=== PATIENT | female | born 1965 | race Hispanic/Latino ===

== ENCOUNTER 2017-11-18 20:00 | Emergency (ER) | payer MEDICARE ==
[2017-11-18 20:26] VITALS: BP 156/84; PULSE 99; RESP 20; TEMP 97.7; O2SAT 98
[2017-11-18] MEDS ORDERED: Dexamethasone 4 mg/1 ml IM STA (20:59)
--- NOTE | 2017-11-18 21:11 | C.PDOC ---
History Of Present Illness 52yo female, with history of chronic back pain, comes to ER complaining of worsening left lower back pain, radiating to her left abdomen and left leg. Patient states she had a neurotransmitter placed in her left lower back, but that it was "too low" and so had a second one placed "higher up" on her back. She reports there is a lot of "scar tissue" in that area and states when she went to bend over a couple days ago, she felt the neurotransmitter "move" and felt a pulling sensation. Patient also states she is visiting from [place] and while she is on vacation, she has been walking more than usual and feels her pain may be attributed to that. Patient states she takes Oxycodone 2mg and has been taking it for her pain with no relief. Otherwise, she denies any fever, chills, weakness, numbness, tingling, and offers no additional medical complaints. Time Seen by Provider: 11/18/17 20:38 Chief Complaint (Nursing): Back Pain History Per: Patient History/Exam Limitations: no limitations Onset/Duration Of Symptoms: Days, Persistent Current Symptoms Are (Timing): Still Present Quality Of Discomfort: "Pain" Previous Symptoms: Back Pain, Chronic Pain Associated Symptoms: denies: Incontinence, New Weakness, New Numbness Exacerbating Factor(s): Movement Additional History Per: Patient Past Medical History Reviewed: Historical Data, Nursing Documentation, Vital Signs Vital Signs: Last Vital Signs Temp 97.7 F 11/18/17 20:20 Pulse 99 H 11/18/17 20:20 Resp 20 11/18/17 20:20 BP 156/84 H 11/18/17 20:20 Pulse Ox 98 11/18/17 23:31 - Medical History PMH: Anxiety, Fibromyalgia, Chronic Pain (back) Denies: Chronic Kidney Disease Surgical History: Back Surgery, Cholecystectomy Other Surgeries: neurotransmitter placement x 2 Family History: States: No Known Family Hx - Social History Hx Tobacco Use: No Hx Alcohol Use: No Hx Substance Use: No - Immunization History Hx Tetanus Toxoid Vaccination: Yes Hx Influenza Vaccination: Yes Hx Pneumococcal Vaccination: Yes Review Of Systems Except As Marked, All Systems Reviewed And Found Negative. Constitutional: Negative for: Fever, Chills Gastrointestinal: Positive for: Abdominal Pain (left sided) Musculoskeletal: Positive for: Back Pain (left sided), Leg Pain (left) Neurological: Negative for: Weakness, Numbness Physical Exam - Physical Exam Appears: Non-toxic, No Acute Distress Skin: Warm Head: Atraumatic, Normacephalic Eye(s): bilateral: Normal Inspection Neck: Normal ROM, Supple Chest: Symmetrical Cardiovascular: Rhythm Regular Respiratory: Normal Breath Sounds Gastrointestinal/Abdominal: Soft, No Tenderness, No Mass, No Guarding, No Rebound Back: No Vertebral Tenderness, No Muscle Spasm, Paraspinal Tenderness (left sided), Other (no sign of infection to surgical site) Extremity: Normal ROM, No Tenderness, No Pedal Edema, No Calf Tenderness, No Deformity, No Swelling Neurological/Psych: Oriented x3, Normal Motor, Normal Sensation Gait: Steady ED Course And Treatment O2 Sat by Pulse Oximetry: 98 (RA) Pulse Ox Interpretation: Normal Medical Decision Making Medical Decision Making: Impression: Exacerbation of lower back pain Plan: * Decadron 10 mg IM * Flexeril 10 mg PO * Toradol 30 mg IM * Lumbar spine x-ray LS spine xray is questionable. CT scan ordered. CT scan of the lumbar spine shows degenerative changes but otherwise unremarkable. On re-exam, the patient reports improvement of symptoms. Lungs are CTA, heart is RRR, abdomen is soft, non-tender and the patient is tolerating PO well. Ambulatory in the ED with steady gait. Follow up with the medical doctor within 1-2 days. Return if worsened. Disposition - Disposition Referrals: [facility] [Outside] Disposition: HOME/ ROUTINE Disposition Time: 23:28 Condition: STABLE Additional Instructions: Follow up with your Spine doctor within 1-2 weeks. Return if worsened. 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 - Scribe Statement The provider has reviewed the documentation as recorded by the Scribe Rakan Chang All medical record entries made by the Scribe were at my direction and personally dictated by me. I have reviewed the chart and agree that the record accurately reflects my personal performance of the history, physical exam, medical decision making, and the department course for this patient. I have also personally directed, reviewed, and agree with the discharge instructions and disposition.
[2017-11-18] MEDS ORDERED: Lidocaine 5% Patch TD STA (22:02)
[2017-11-18] MEDS ORDERED: Lidocaine 5% Patch TD ONE (22:09)
[2017-11-18] MEDS ORDERED: Morphine 4 MG/ML VIAL ONE (22:14)
--- NOTE | 2017-11-19 06:22 | CT ---
Date of service: 11/18/2017 PROCEDURE: CT Lumbar Spine without contrast HISTORY: back pain, hx of spine surgery COMPARISON: None. TECHNIQUE: Axial computed tomography images were obtained of the lumbar spine without the use of intravenous contrast. Coronal and sagittal reformatted images were created and reviewed. Radiation dose: Total exam DLP = 1040.75 mGy-cm. This CT exam was performed using one or more of the following dose reduction techniques: Automated exposure control, adjustment of the mA and/or kV according to patient size, and/or use of iterative reconstruction technique. FINDINGS: VERTEBRAE: The patient is status post posterior lumbar fusion at L3 - L5. There are bilateral pedicle screws at L3 and L5 connected with vertical rods. There are also intervertebral spacers at L3-L4 and L4-L5 no evidence of acute fracture or destructive bony lesion in the lumbar vertebrae. Normal alignment of the lumbar spine vertebrae without evidence of subluxation. DISCS/SPINAL CANAL/NEURAL FORAMINA: L1-2: Cqgx-re-kzsgeniy narrowing of the intervertebral disc is space at L1-L2 noted. There is a small broad-based disc bulge associated with posterior ligament and facet joint hypertrophy which resulting in mild spinal and left neural foraminal narrowing. L2-3: There is moderate to severe narrowing of the intervertebral disc space. There is a broad-based disc bulge associated with posterior ligament and facet joint hypertrophy which resulting in [id number] spinal stenosis. L3-4: Unremarkable. L4-5: Unremarkable. L5-S1: Unremarkable. PARASPINAL SOFT TISSUES: There is stimulator device at the lower back with 2 wires extending into the spinal canal at the level of L1 and extending superiorly to the thoracic spine. OTHER FINDINGS: None. IMPRESSION: No evidence of acute fracture or subluxation. Status post lower lumbar spine hardware fusion as described above. No evidence of hardware failure. Mild to moderate L1-L2 and moderate to severe L2-L3 disc space narrowing. Posterior disc bulge at L1-L2 and L2-L3 associated with posterior ligament and facet joint hypertrophy which resulting in mild spinal and neural foraminal narrowing as described above. Preliminary report was submitted by [facility].
--- NOTE | 2017-11-19 09:26 | RAD ---
Date of service: 11/18/2017 PROCEDURE: Radiographs of the Lumbar Spine. HISTORY: low back pain, neurotrans implant in L back COMPARISON: No prior. FINDINGS: BONES: Normal curvature. No spondylolisthesis fracture or destructive bony lesion appreciable. Post spinal fusion hardware is identified by transpedicular screws at L3 and L5 bilaterally transfixed by interconnecting rods. Further, intervertebral fusion is also seen L3-4 L4-5. An epidural stimulator is identified placed with generator at the left buttocks and wires extending into the upper lumbar spine extending cephalad into the thoracic central canal with the termination not captured in this exam. DISC SPACES: As above. OTHER FINDINGS: Surgical clips noted right upper quadrant abdomen. IMPRESSION: No fracture or spondylolisthesis. Posterior lumbar spinal fusion L3-L5 as well as intervertebral fusion hardware L3-4 and L4-5 as discussed above. No destructive bony lesion. Neural stimulator as discussed above.
== END 2017-11-19 00:04 | disposition home or self-care (01) ==
LOC: C.ER 20:00
DX: M54.5 Low back pain (principal)
CPT/HCPCS: 72100; 72131; 96372; 99283; J1100; J1885; J2270